=== PATIENT | female | born 1990 | race Hispanic/Latino ===

== ENCOUNTER 2019-05-13 06:32 | Emergency (ER) | payer MEDICAID ==
[2019-05-13] MEDS ORDERED: ONDANSETRON 4 MG ODT TAB PO ONE (07:01)
[2019-05-13] MEDS ORDERED: HYDROcodone/ACETAMINOPHEN 5-325 MG TAB PO ONE (07:01)
[2019-05-13] MEDS ORDERED: IBUPROFEN 600 MG TAB PO ONE ×2 (07:01→07:08)
--- NOTE | 2019-05-13 07:02 | XRay Report ---
Right ankle 2 views INDICATION: Right ankle pain following injury IMPRESSION: Significant subcutaneous edema surrounding the right ankle. There is a tiny osseous fragm ent anterior to the distal tibia measuring about 2 mm in diameter that is ultimately nonspecific and may represent a small avulsion fragment in the setting of recent injury. Otherwise the right ankle is intact and there is no subluxation. Signer Name: Osbaldo La MD Signed: 05/13/2019 6:58 AM Workstation Name: [id number]
[2019-05-13] MEDS ORDERED: ONDANSETRON 4 MG ODT TAB ONE (07:07)
[2019-05-13] MEDS ORDERED: HYDROcodone/ACETAMINOPHEN 5-325 MG TAB ONE (07:08)
--- NOTE | 2019-05-13 07:55 | Emergency Department Report ---
ED Lower Extremity HPI - General Chief Complaint: Extremity Injury, Lower Stated Complaint: RT ANKLE PAIN Time Seen by Provider: 05/13/19 07:24 Source: patient, EMS Mode of arrival: Ambulatory Limitations: No Limitations - History of Present Illness Initial Comments: Jose Angel is a 29-year-old female who presents to the emergency room with right ankle pain and swelling. Patient states she stepped on her Last night and fell around 2130. Patient states when she fell her ankle was eversion. She is now complaining of swelling to right lateral side and worsening pain with weightbearing. Mom states she applied an Drake bandage and told patient to go to bed. Patient states when she woke up this morning she was unable to apply weight. She denies loss of consciousness, hitting her head, bruising, numbness or tingling, or weakness. MD Complaint: ankle injury (right) -: Last night Time: 21:30 Injury: Ankle: Right Type of Injury: eversion Place: home Severity: severe Severity scale (0 -10): 10 Improves With: immobilization Worsens With: weight bearing, movement, palpation Context: fall Associated Symptoms: snap/pop sensation, swelling, unable to bear weight. denies: numbness, tingling Treatments Prior to Arrival: bandage - Related Data Previous Rx's Medication Instructions Recorded Last Taken Type ALBUTEROL Inhaler (OR & NICU) 2 puff IH QID PRN #1 inh 04/22/13 Unknown Rx [ProAir HFA Inhaler] Prednisone 20 mg PO BID #6 tablet 04/22/13 Unknown Rx Naproxen [Naprosyn] 500 mg PO BID PRN #20 tablet 05/13/19 Unknown Rx traMADoL [Ultram 50 MG tab] 50 mg PO Q6HR PRN #12 tablet 05/13/19 Unknown Rx Allergies Allergy/AdvReac Type Severity Reaction Status Date / Time No Known Allergies Allergy Unverified 04/22/13 11:15 ED Review of Systems ROS: Stated complaint: RT ANKLE PAIN Other details as noted in HPI Constitutional: denies: chills, fever Respiratory: denies: cough, shortness of breath, wheezing Cardiovascular: denies: chest pain, palpitations Gastrointestinal: denies: abdominal pain, nausea, diarrhea Musculoskeletal: joint swelling (right ankle), arthralgia (right ankle). denies: back pain Skin: denies: rash, lesions Neurological: denies: headache, weakness, paresthesias Psychiatric: denies: anxiety, depression ED Past Medical Hx - Past Medical History Previous Medical History?: Yes Hx Psychiatric Treatment: Yes Hx Asthma: Yes Additional medical history: hearing impaired - Surgical History Past Surgical History?: No - Social History Smoking Status: Never Smoker Substance Use Type: None - Medications Home Medications: Home Medications Medication Instructions Recorded Confirmed Last Taken Type ALBUTEROL Inhaler (OR & NICU) 2 puff IH QID PRN #1 inh 04/22/13 Unknown Rx [ProAir HFA Inhaler] Prednisone 20 mg PO BID #6 tablet 04/22/13 Unknown Rx Naproxen [Naprosyn] 500 mg PO BID PRN #20 tablet 05/13/19 Unknown Rx traMADoL [Ultram 50 MG tab] 50 mg PO Q6HR PRN #12 tablet 05/13/19 Unknown Rx ED Physical Exam - General Limitations: No Limitations General appearance: alert, in no apparent distress, obese - Respiratory Respiratory exam: Present: normal lung sounds bilaterally. Absent: respiratory distress - Cardiovascular Cardiovascular Exam: Present: regular rate, normal rhythm. Absent: systolic murmur, diastolic murmur, rubs, gallop - GI/Abdominal GI/Abdominal exam: Present: soft, normal bowel sounds - Expanded Lower Extremity Exam Right Hip exam: Present: normal inspection, full ROM Upper Leg exam: Present: normal inspection, full ROM Knee exam: Present: normal inspection, full ROM Lower Leg exam: Present: normal inspection, full ROM Ankle exam: Present: tenderness (tenderness and swelling medial malleolus), swelling. Absent: full ROM (decrease range of motion secondary pain. Unable to tolerate), abrasion, laceration, ecchymosis, deformity, crepidus, dislocation, erythema, anterior draw sign Foot/Toe exam: Present: swelling. Absent: full ROM (limited range of motion), tenderness, abrasion, laceration, ecchymosis, deformity, crepidus, dislocation, erythema, amputation, puncture wound, foreign body, calcaneal tenderness, tenderness at base of 5th metatarsal, nail avulsion, subungual hematoma Neuro vascular tendon exam: Present: no vascular compromise Gait: Positive: observed and limited by pain - Neurological Exam Neurological exam: Present: alert, oriented X3, normal gait - Expanded Neurological Exam Expanded Patient oriented to: Present: person, place, time Speech: Present: fluid speech Sensory exam: Lower Extremity Light Touch: Normal, Lower Extremity Pin Prick: Normal, Lower Extremity Temperature: Normal, LE 2 Point Discrimination: Normal Motor strength exam: RLE: 5, LLE: 5 Best Eye Response ([place]): (4) open spontaneously Best Motor Response ([place]): (6) obeys commands Best Verbal Response ([place]): (5) oriented [place] Total: 15 - Psychiatric Psychiatric exam: Present: normal affect, normal mood - Skin Skin exam: Present: warm, dry, intact, normal color. Absent: rash ED Course Vital Signs 05/13/19 05/13/19 06:38 08:13 Temperature 97.5 F L Pulse Rate 119 H 89 Respiratory 16 16 Rate Blood Pressure 71/55 Blood Pressure 101/62 [Left] O2 Sat by Pulse 99 99 Oximetry ED Lower Extremity MDM - Radiology Data Radiology results: report reviewed Right ankle 2 views INDICATION: Right ankle pain following injury IMPRESSION: Significant subcutaneous edema surrounding the right ankle. There is a tiny osseous fragment anterior to the distal tibia measuring about 2 mm in diameter that is ultimately nonspecific and may represent a small avulsion fragment in the setting of recent injury. Otherwise the right ankle is intact and there is no subluxation. - Medical Decision Making Patient was examined by me. Patient is nontoxic appearing and stable. Obtained x-ray of right ankle. Significant subcutaneous edema surrounding the right ankle. There is a tiny osseous fragment anterior to the distal tibia measuring about 2 mm in diameter that is ultimately nonspecific and may represent a small avulsion fragment in the setting of recent injury. Given analgesics while in the ER. A short leg posterior splint was applied to right lower extremity. Patient given crutches with education. Start trauma in all and naproxen for pain. Referral to orthopedics for follow-up. Patient informed of results. Follow up with PCP or return to the ER with worsening symptoms. Patient discharged home in stable condition. Critical care attestation.: If time is entered above; I have spent that time in minutes in the direct care of this critically ill patient, excluding procedure time. ED Disposition Clinical Impression: Acute right ankle pain Fall Qualifiers: Encounter type: initial encounter Qualified Code(s): W19.XXXA - Unspecified fall, initial encounter Avulsion fracture of ankle Qualifiers: Encounter type: initial encounter Fracture type: closed Laterality: right Qualified Code(s): S82.891A - Other fracture of right lower leg, initial encounter for closed fracture Disposition: TO HOME OR SELFCARE Is pt being admited?: No Condition: Stable Instructions: Ankle Fracture (ED), Arthralgia (ED), Fall Prevention (ED) Additional Instructions: Rest Use ice or heat on affected area for 20 minutes and off for 2 hours. Take pain medication as needed for pain. Follow up with Primary Care Provider in 2-3 days. Prescriptions: Naproxen [Naprosyn] 500 mg PO BID PRN #20 tablet PRN Reason: Pain, Moderate (4-6) traMADoL [Ultram 50 MG tab] 50 mg PO Q6HR PRN #12 tablet PRN Reason: Pain Referrals: PAULINA FELICIANO MD [Staff Physician] - 3-5 Days [facility] [Provider Group] - 3-5 Days Forms: Accompanied Note Time of Disposition: 08:06
[2019-05-13 08:13] VITALS: BP 101/62
== END 2019-05-13 08:40 | disposition home or self-care (01) ==
LOC: ED 06:32
DX: S82.891A Other fracture of right lower leg, initial encounter for closed fracture (principal); M25.571 Pain in right ankle and joints of right foot; J45.909 Unspecified asthma, uncomplicated; Z79.899 Other long term (current) drug therapy; W19.XXXA Unspecified fall, initial encounter; Y93.89 Activity, other specified; Y92.89 Other specified places as the place of occurrence of the external cause; Y99.8 Other external cause status
CPT/HCPCS: Q0162